=== PATIENT | female | born 1940 ===

== ENCOUNTER → 2018-09-09 | Day surgery (SDC) | payer MEDICARE, OTHER ==
[~2018-09-09] MED LIST: Lactated Ringer's 500 ML IV ONE; Propofol 10 mg/ml Inj (20 ML) ONE
[2018-09-09 10:37] VITALS: PULSE 71; TEMP 97.2; O2SAT 98
[2018-09-09 11:09] VITALS: BP 101/60; RESP 18
== END | disposition home or self-care (01) ==
LOC: H.ENDO 08:18
PROVIDERS: ATTEND Internal Medicine Gastroenterology
DX: Z12.11 Encounter for screening for malignant neoplasm of colon (principal); I10 Essential (primary) hypertension; J45.909 Unspecified asthma, uncomplicated; D12.6 Benign neoplasm of colon, unspecified; K57.30 Diverticulosis of large intestine without perforation or abscess without bleeding; K44.9 Diaphragmatic hernia without obstruction or gangrene; K29.40 Chronic atrophic gastritis without bleeding
CPT/HCPCS: 43239; 45385; 88305; J2001; J2704; J7120